=== PATIENT | male | born 1985 | race African-American/Black ===

== ENCOUNTER 2017-04-08 14:04 | Emergency (ER) ==
[2017-04-08 14:08] VITALS: TEMP 98.3; BMI 29.8
--- NOTE | 2017-04-08 15:40 | ED.PDOC ---
General ED Provider: Dr. LANE GARCIA Chief Complaint: Hand Pain/Injury Stated Complaint: Rt Hand pain -region 5th MCP joint, onset yesterday evening. No hx trauma. Pain shooting from proximal Ulnar -carpal joint to MCP joint Time Seen by Physician: 15:30 Mode of Arrival: Walk-In Information Source: Patient Exam Limitations: No limitations Nursing and Triage Documentation Reviewed and Agree: Yes Reviewed sepsis parameters & appropriate labs ordered?: Yes System Inflammatory Response Syndrome: Not Applicable Sepsis Protocol: For patient's 13 years and over: Temp is 96.8 and below OR 101 and greater Pulse >90 BPM Resp >20/minute Acutely Altered Mental Status Are patient's symptoms suggestive of a new infection, such as: -Pneumonia -Skin, Soft Tissue -Endocarditis -UTI -Bone, Joint Infection -Implantable Device -Acute Abdominal Infection -Wound Infection -Meningitis -Blood Stream Catheter Infection -Unknown System Inflammatory Response Syndrome: Not Applicable Musculoskeletal Complaint Exam - Hand/Wrist Complaint/Exam Location of Pain: Reports: Hand, Digit #5 Mechanism of Injury: Reports: No known trauma Onset/Duration: 24 hr Symptoms Are: Still present Initial Severity: Moderate Current Severity: Mild Location: Reports: Discrete Character: Reports: Dull, Aching Alleviating: Reports: Rest Aggravating: Reports: Movement Associated Signs and Symptoms: Reports: Swelling Related History: Reports: Similar episode Dominant Hand: Right Related Surgical History: Reports: None Hand/Wrist Findings: Absent: Swelling, Ecchymosis, Ligamentous instability, Tinel's Sign, Phalen's Sign, Laceration, Nail avulsion Tenderness: Absent: Radius, Ulna Compartment Syndrome Risk Factors: Absent: Pain Differential Diagnoses: Sprain, Strain, Tendonitis Review of Systems - Review Of Systems Constitutional: Reports: No symptoms Eyes: Reports: No symptoms Ears, Nose, Mouth, Throat: Reports: No symptoms Respiratory: Reports: No symptoms Cardiac: Reports: No symptoms GI: Reports: No symptoms : Reports: No symptoms Musculoskeletal: Reports: No symptoms, Joint pain Skin: Reports: No symptoms Neurological: Reports: No symptoms Endocrine: Reports: No symptoms Hematologic/Lymphatic: Reports: No symptoms All Other Systems: Reviewed and Negative Past Medical History - Past Medical History Endocrine: Reports: None Cardiovascular: Reports: None Respiratory: Reports: None Hematological: Reports: None Gastrointestinal: Reports: None Genitourinary: Reports: None Neuro/Psych: Reports: None Musculoskeletal: Reports: None Cancer: Reports: None - Surgical History General Surgical History: Reports: None - Family History Family History: Reports: None - Social History Smoking Status: Current every day smoker, Heavy tobacco smoker Hx Substance Use: No Alcohol Screening: Occasionally - Immunizations Tetanus Shot up to Date: No Physical Exam - Physical Exam Appearance: Well-appearing, No pain distress, Well-nourished Ill-appearing: None Pain Distress: Mild Neck: Supple Respiratory: Airway patent, Breath sounds clear, Breath sounds equal Cardiovascular: RRR, Pulses normal GI/: Soft, Nontender Musculoskeletal: ROM intact (Tenderness over 5th Ulnar-carpal joint), Limited strength (Decreased Rt Hand [employer]) Neurological: Sensation intact, Motor intact, Reflexes intact Psychiatric: Affect appropriate, Mood appropriate Critical Care Note - Critical Care Note Total Time (mins): 0 Course - Course Orders, Labs, Meds: Orders Category Date Time Status HAND, RIGHT 2 VIEWS Stat RADS 04/08/17 15:37 Taken Vital Signs: Temp Pulse Resp BP Pulse Ox 04/08/17 14:05 98.3 F 70 20 167/90 H 99 Departure - Departure Time of Disposition: 17:05 Disposition: HOME SELF-CARE Discharge Problem: Hand pain, right Instructions: Muscle Strain (ED), Wrist Sprain (ED), Wrist Injury (ED) Condition: Good Pt referred to PMD for follow-up: Yes IPMP verified?: No Additional Instructions: ICE to area of discomfort 3 times daily as directed Take Ibuprofen for relief of pain Follow up PCP 1 week Use wrist/hand splint or brace Allergies/Adverse Reactions: Allergies No Known Allergies Allergy (Unverified 04/08/17 14:09) Home Medications: Ambulatory Orders 1 [No Reported Medications] 04/08/17
[2017-04-08 17:06] VITALS: BP 132/86
--- NOTE | 2017-04-08 18:03 | DI ---
EXAM: Two-view right hand COMPARISON: None HISTORY: Trauma and pain FINDINGS: There is some mild angulation of the distal aspect of the right fifth metacarpal consistent with prior fracture which is age indeterminate. Joint spaces are well preserved. There is no signifi cant degenerative change. There is no soft tissue swelling. No unexpected radio-opaque foreign bodies . IMPRESSION: Prior fracture of the distal aspect of the right fifth metacarpal.
== END 2017-04-08 17:20 | disposition home or self-care (01) ==
LOC: EDSEX → ED 14:04
DX: M79.641 Pain in right hand (principal); F17.210 Nicotine dependence, cigarettes, uncomplicated
CPT/HCPCS: 99282